=== PATIENT | female | born 2000 | race African-American/Black ===

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

== ENCOUNTER 2022-03-19 10:00 | Emergency (ER) | payer OTHER ==
[~2022-03-19] VITALS: Ht 165.1 cm; Wt 68.2 kg
[2022-03-19] MEDS ORDERED: IBUPROFEN 600MG TAB PO ONE (11:45)
[2022-03-19] MEDS ORDERED: IBUP-1022 PO (11:48)
[2022-03-19 12:04] VITALS: BP 125/79
== END 2022-03-19 12:09 | disposition home or self-care (01) ==
LOC: EDBD 10:00 → M ED 10:00
DX: S83.92XA Sprain of unspecified site of left knee, initial encounter (principal); M25.562 Pain in left knee; Z79.1 Long term (current) use of non-steroidal anti-inflammatories (NSAID)

== ENCOUNTER → 2022-04-29 | Outpatient (CLI) | payer OTHER ==
[~2022-04-29] MED LIST: IBUP-1022 PO
== END ==
LOC: M CARPUL 13:42
PROVIDERS: ATTEND Physician Assistant
DX: R06.02 Shortness of breath (principal)

== ENCOUNTER → 2022-05-09 | Outpatient (CLI) | payer OTHER | LOC: M PLARAD 09:06 | PROVIDERS: ATTEND Physician Assistant | DX: M22.42 Chondromalacia patellae, left knee (principal) ==

== ENCOUNTER → 2022-05-13 | Outpatient (CLI) | payer OTHER ==
[~2022-05-13] MED LIST changes: +METHACHOLINE KIT INH ONE
== END ==
LOC: M CARPUL 13:37
PROVIDERS: ATTEND Physician Assistant
DX: R06.02 Shortness of breath (principal)
CPT/HCPCS: 94070; J7674

== ENCOUNTER 2023-02-04 23:49 | Emergency (ER) | payer OTHER ==
[~2023-02-04] VITALS: Ht 167.6 cm; Wt 80.2 kg
[~2023-02-04 23:49] MED LIST changes: -METHACHOLINE KIT INH ONE
[2023-02-05 02:01] LABS: BASO # 0.1 10^3/uL (0.0-0.2); BASO % 0.6 % (0.0-1.0); EOS # 0.7 10^3/uL (0.0-0.5); EOS % 8.5 % (0.0-3.0); HEMATOCRIT 37.9 % (36.0-47.0); HEMOGLOBIN 12.3 g/dl (12.0-15.5); LYMPH # 4.4 10^3/uL (1.5-5.0); LYMPH % 52.5 % (24.0-44.0); MEAN CORPUSCULAR HEMOGLOBIN 27.7 pg (27.0-33.0); MEAN CORPUSCULAR HGB CONC 32.5 g/dl (32.0-36.5); MEAN CORPUSCULAR VOLUME 85.4 fl (80.0-96.0); MONO # 0.7 10^3/uL (0.0-0.8); MONO % 8.1 % (2.0-8.0); NEUTROPHILS # 2.6 10^3/uL (1.5-8.5); NEUTROPHILS % 30.2 % (36.0-66.0); PLATELET COUNT, AUTOMATED 263 10^3/uL (150-450); RED BLOOD COUNT 4.44 10^6/uL (4.00-5.40); WHITE BLOOD COUNT 8.4 10^3/uL (4.0-10.0)
[2023-02-05 02:29] LABS: LIPASE 39 U/L (12-53)
[2023-02-05 02:32] LABS: ALKALINE PHOSPHATASE 96 U/L (46-116); ALT/SGPT 26 U/L (7.0-40); AST/SGOT 22 U/L (<34); BILIRUBIN,DIRECT 0.2 MG/DL (<0.4); BILIRUBIN,TOTAL 0.5 MG/DL (0.3-1.2); BLOOD UREA NITROGEN 12 MG/DL (9-23); CALCIUM LEVEL 9.5 MG/DL (8.5-10.1); CARBON DIOXIDE LEVEL 28 MMOL/L (20-31); CHLORIDE LEVEL 106 MMOL/L (98-107); CREATININE FOR GFR 0.78 MG/DL (0.55-1.30); GLUCOSE, FASTING 98 MG/DL (60-100); POTASSIUM SERUM 4.2 MMOL/L (3.5-5.1); SODIUM LEVEL 138 MMOL/L (136-145); TOTAL PROTEIN 7.2 G/DL (5.7-8.2)
[2023-02-05 02:40] LABS: HCG, SERUM QUALITATIVE NEGATIVE (NEGATIVE)
[2023-02-05] MEDS ORDERED: ALLE10TA62 PO (03:18)
[2023-02-05] MEDS ORDERED: ISOVUE-370 76% 100ML VIAL As Ordered ONE (03:54)
[2023-02-05] MEDS ORDERED: BACT800T5 PO (05:43)
[2023-02-05] MEDS ORDERED: BACTRIM 160MG/800MG DS TAB PO ONE (05:45)
[2023-02-05 05:57] VITALS: BP 127/77; TEMP 98.6; O2SAT 99
== END 2023-02-05 05:58 | disposition left against medical advice (07) ==
LOC: M ED 23:49
DX: K62.5 Hemorrhage of anus and rectum (principal); N75.1 Abscess of Bartholin's gland; Z79.1 Long term (current) use of non-steroidal anti-inflammatories (NSAID); Z79.899 Other long term (current) drug therapy; Z53.9 Procedure and treatment not carried out, unspecified reason
CPT/HCPCS: 36415; 71046; 74177; 80048; 80076; 83690; 84703; 85025; 93041; 99284; Q9967